=== PATIENT | female | born 1980 | race Caucasian/White ===

== ENCOUNTER 2016-11-30 05:55 | Emergency (ER) | payer BC, OTHER ==
--- NOTE | 2016-11-30 06:12 | EDM.PDOC ---
ED HPI GENERAL MEDICAL PROBLEM <Tom Slater Luis Alberto - Last Filed: 11/30/16 08:42> - General Source of Information: Reports: Patient History Limitations: Reports: No Limitations - History of Present Illness Onset: Today Onset Date: 11/30/16 Onset Time: 05:30 Duration: Minutes: Location: Reports: Head, Neck Quality: Reports: Ache Severity: Moderate Improves with: Reports: None Worsens with: Reports: Movement Context: Reports: Other (syncopal event while standing talking to a coworker in the workplace.) Associated Symptoms: Reports: Chest Pain, Diaphoresis (prior to onset of syncopal event), Headaches (headache at this time), Weakness. Denies: Confusion , Cough, cough w sputum, Fever/Chills, Loss of Appetite, Malaise, Nausea/ Vomiting, Rash, Seizure, Shortness of Breath, Syncope Treatments OPEN CUT EXAMINER: Reports: Other (see below) (none.) Neck Pain Score (Numeric/FACES): 8 <Wayne Joshi - Last Filed: 12/03/16 08:36> - General Chief Complaint: Syncope Stated Complaint: fall fast heart beat fainted Time Seen by Provider: 11/30/16 06:10 - History of Present Illness INITIAL COMMENTS - FREE TEXT/NARRATIVE: 36-year-old female presents to the ED after suffering a syncopal event while at work this morning. Patient works 12 hour shifts at [employer]. She states she was tiny with a coworker and she started to feel her heart racing.she was also aware of some central chest pressure with a racing heart. She was then started to feel dizzy lightheaded and before she could react to this ie. sit down ,she collapsed to the floor. She fell backward striking her head on the concrete floor. She reports she was probably out for about 20 seconds. She was dazed and very dizzy when she sat up. She has never experienced this before. Although she' s had racing heart with anxiety attacks in the past she does not feel she was anxious at this time. Now has a headache with no reported nausea or vomiting. Neck supple skull and base of her neck and throughout the cervical spine. No pain anywhere else at this time.No recent illness. No fever no chills. She states that she did get lunch break and did eat. She's not been ill with nausea vomiting or diarrhea her volume depletion in the last several days. No signs are stable upon arrival with a heart rate of 67/m and BP 157/93. (Wayne Joshi) - Related Data Allergies Allergy/AdvReac Type Severity Reaction Status Date / Time No Known Allergies Allergy Verified 11/30/16 06:09 Home Meds: Home Meds ALPRAZolam [Alprazolam] 1 mg PO Q6H PRN 03/01/14 [History] Sertraline HCl [Sertraline HCl] 100 mg PO DAILY 03/01/14 [History] sitaGLIPtin Phos/Metformin HCl [Janumet 50-500 MG] 2 tab PO DAILY 11/30/16 [ History] Social & Family History - Tobacco Use Smoking Status *Q: Never Smoker - Alcohol Use Days Per Week of Alcohol Use: 0 - Recreational Drug Use Recreational Drug Use: No - Living Situation & Occupation Living situation: Reports: Occupation: Employed <Wayne Joshi - Last Filed: 12/03/16 08:36> ED ROS GENERAL - Review of Systems Review Of Systems: See Below Constitutional: Reports: Weakness, Fatigue. Denies: Fever, Chills, Malaise, Decreased Appetite, Weight Loss HEENT: Reports: No Symptoms Respiratory: Reports: No Symptoms Cardiovascular: Reports: No Symptoms Endocrine: Reports: Fatigue GI/Abdominal: Reports: No Symptoms : Reports: No Symptoms Musculoskeletal: Reports: Neck Pain. Denies: Shoulder Pain (see history of present illness), Arm Pain, Back Pain, Hand Pain, Leg Pain, Foot Pain, Joint Pain, Joint Swelling, Muscle Pain, Muscle Stiffness Skin: Reports: No Symptoms Neurological: Reports: Dizziness, Headache, Syncope (see history of present illness), Weakness. Denies: Numbness, Paresthesia, Pre-Existing Deficit, Seizure, Tingling, Tremors, Trouble Speaking, Difficulty Walking, Change in Speech, Gait Disturbance Psychiatric: Reports: Anxiety Hematologic/Lymphatic: Reports: No Symptoms Immunologic: Reports: No Symptoms <Wayne Joshi - Last Filed: 12/03/16 08:36> - Physical Exam Exam: See Below Exam Limited By: No Limitations General Appearance: Alert, WD/WN, No Apparent Distress Eye Exam: Bilateral Eye: Normal Inspection Throat/Mouth: Normal Inspection, Normal Lips, Normal Oropharynx, Other (no evidence of biting of the tongue) Head Exam: Scalp Tenderness (occipital scalp and base of scalp.). No: Facial Abrasions, Facial Ecchymosis, Facial Lacerations, Facial Swelling, Facial Tenderness, Sinus Tenderness Neck: Limited Range of Motion, Tender Lateral, Tender Midline (C4-C5 level.). No: Lymphadenopathy (L), Lymphadenopathy (R) Respiratory/Chest: No Respiratory Distress, Lungs Clear, Normal Breath Sounds, No Accessory Muscle Use Cardiovascular: Normal Peripheral Pulses, Regular Rate, Rhythm, No Edema, No Gallop, No Murmur GI/Abdominal: Normal Bowel Sounds, Soft, Non-Tender, No Organomegaly, No Distention, No Abnormal Bruit, No Mass, Other (abdominal girth limits ability to palpate solid organs.) Neuro Exam (Abbreviated): Alert, Oriented, CN II-XII Intact, Normal Cognition, No Motor/Sensory Deficits. No: Slow to Respond, Unresponsive, Memory Loss Remote Events, Memory Loss Recent Events, Abnormal Gait, Abnormal Reflexes, Sensory/Motor Deficit Back Exam: Normal Inspection, Full Range of Motion. No: CVA Tenderness (L), CVA Tenderness (R), Vertebral Tenderness Extremities: Normal Inspection, Normal Range of Motion, Non-Tender, No Pedal Edema, Normal Capillary Refill, Other (no injuries to the elbows.) Psychiatric: Normal Affect, Normal Mood Skin Exam: Warm, Dry, Intact, Normal Color, No Rash <Wayne Joshi L - Last Filed: 12/03/16 08:36> Course <Tom Slater L - Last Filed: 11/30/16 08:42> <Wayne Joshi - Last Filed: 12/03/16 08:36> - Vital Signs Last Recorded V/S: Last Vital Signs Temp 36.1 C 11/30/16 07:19 Pulse 72 11/30/16 06:02 Resp 12 11/30/16 08:35 BP 147/96 H 11/30/16 06:02 Pulse Ox 98 11/30/16 08:35 Orthostatic Blood Pressure [ 136/88 Standing] Orthostatic Blood Pressure [ 141/80 Sitting] Orthostatic Blood Pressure [ 156/88 Supine] - Orders/Labs/Meds Labs: Laboratory Tests 11/30/16 11/30/16 11/30/16 Range/Units 06:30 06:30 06:30 WBC 11.40 H (3.98-10.04) K/mm3 RBC 4.97 (3.98-5.22) M/mm3 Hgb 13.4 (11.2-15.7) gm/L Hct 40.7 (34.1-44.9) % MCV 81.9 (79.4-94.8) fl MCH 27.0 (25.6-32.2) pg MCHC 32.9 (32.2-35.5) g/dl RDW Std Deviation 39.8 (36.4-46.3) fL Plt Count 300 (182-369) K/mm3 MPV 8.8 L (9.4-12.3) fl Neutrophils % (Manual) 75 H (40-60) % Band Neutrophils % 0 (0-10) % Lymphocytes % (Manual) 24 (20-40) % Atypical Lymphs % 0 % Monocytes % (Manual) 0 L (2-10) % Eosinophils % (Manual) 1 (0.7-5.8) % Basophils % (Manual) 0 L (0.1-1.2) Platelet Estimate Adequate RBC Morph Comment Normal D-Dimer, Quantitative < 0.19 L (0.19-0.59) mg/L Sodium 139 (136-145) mEq/L Potassium 3.8 (3.5-5.1) mEq/L Chloride 103 (98-107) mEq/L Carbon Dioxide 26 (21-32) mEq/L Anion Gap 13.8 (5-15) BUN 12 (7-18) mg/dL Creatinine 0.6 (0.55-1.02) mg/dL Est Cr Clr Drug Dosing 116.64 mL/min Estimated GFR (MDRD) > 60 (>60) mL/min BUN/Creatinine Ratio 20.0 H (14-18) Glucose 145 H (74-106) mg/dL Calcium 9.1 (8.5-10.1) mg/dL Total Bilirubin 0.2 (0.2-1.0) mg/dL AST 9 L (15-37) U/L ALT 24 (14-59) U/L Alkaline Phosphatase 68 (46-116) U/L CK-MB (CK-2) 0.5 (0-3.6) ng/ml Troponin I < 0.017 (0.00-0.056) ng/mL C-Reactive Protein 0.8 (<1.0) mg/dL Total Protein 7.8 (6.4-8.2) g/dl Albumin 3.7 (3.4-5.0) g/dl Globulin 4.1 gm/dL Albumin/Globulin Ratio 0.9 L (1-2) TSH 3rd Generation 4.143 H (0.358-3.74) uIU/mL Urine Color (Yellow) Urine Appearance (Clear) Urine pH (5.0-8.0) Ur Specific [place] (1.005-1.030) Urine Protein (Negative) Urine Glucose (UA) (Negative) Urine Ketones (Negative) Urine Occult Blood (Negative) Urine Nitrite (Negative) Urine Bilirubin (Negative) Urine Urobilinogen (0.2-1.0) Ur Leukocyte Esterase (Negative) Urine RBC (0-5) /hpf Urine WBC (0-5) /hpf Ur Epithelial Cells (0-5) /hpf Urine Bacteria (FEW) /hpf Urine Mucus (FEW) /hpf Urine HCG, Qual (NEGATIVE) 11/30/16 11/30/16 Range/Units 06:30 06:30 WBC (3.98-10.04) K/mm3 RBC (3.98-5.22) M/mm3 Hgb (11.2-15.7) gm/L Hct (34.1-44.9) % MCV (79.4-94.8) fl MCH (25.6-32.2) pg MCHC (32.2-35.5) g/dl RDW Std Deviation (36.4-46.3) fL Plt Count (182-369) K/mm3 MPV (9.4-12.3) fl Neutrophils % (Manual) (40-60) % Band Neutrophils % (0-10) % Lymphocytes % (Manual) (20-40) % Atypical Lymphs % % Monocytes % (Manual) (2-10) % Eosinophils % (Manual) (0.7-5.8) % Basophils % (Manual) (0.1-1.2) Platelet Estimate RBC Morph Comment D-Dimer, Quantitative (0.19-0.59) mg/L Sodium (136-145) mEq/L Potassium (3.5-5.1) mEq/L Chloride (98-107) mEq/L Carbon Dioxide (21-32) mEq/L Anion Gap (5-15) BUN (7-18) mg/dL Creatinine (0.55-1.02) mg/dL Est Cr Clr Drug Dosing mL/min Estimated GFR (MDRD) (>60) mL/min BUN/Creatinine Ratio (14-18) Glucose (74-106) mg/dL Calcium (8.5-10.1) mg/dL Total Bilirubin (0.2-1.0) mg/dL AST (15-37) U/L ALT (14-59) U/L Alkaline Phosphatase (46-116) U/L CK-MB (CK-2) (0-3.6) ng/ml Troponin I (0.00-0.056) ng/mL C-Reactive Protein (<1.0) mg/dL Total Protein (6.4-8.2) g/dl Albumin (3.4-5.0) g/dl Globulin gm/dL Albumin/Globulin Ratio (1-2) TSH 3rd Generation (0.358-3.74) uIU/mL Urine Color Yellow (Yellow) Urine Appearance Clear (Clear) Urine pH 6.0 (5.0-8.0) Ur Specific [place] 1.020 (1.005-1.030) Urine Protein Negative (Negative) Urine Glucose (UA) Negative (Negative) Urine Ketones Negative (Negative) Urine Occult Blood Negative (Negative) Urine Nitrite Negative (Negative) Urine Bilirubin Negative (Negative) Urine Urobilinogen 0.2 (0.2-1.0) Ur Leukocyte Esterase Negative (Negative) Urine RBC 0-5 (0-5) /hpf Urine WBC 0-5 (0-5) /hpf Ur Epithelial Cells 0-5 (0-5) /hpf Urine Bacteria Not seen (FEW) /hpf Urine Mucus Not seen (FEW) /hpf Urine HCG, Qual Negative (NEGATIVE) Meds: Medications Discontinued Medications Generic Name Dose Route Start Last Admin Trade Name Freq PRN Reason Stop Dose Admin Acetaminophen 975 mg 11/30/16 06:56 11/30/16 07:19 Tylenol PO 11/30/16 06:57 975 mg NOW ONE Administration Sodium Chloride 1,000 mls @ 150 mls/hr 11/30/16 06:45 11/30/16 07:18 Normal Saline IV 150 mls/hr ASDIRECTED GALILEA Administration Sodium Chloride 500 mls @ 999 mls/hr 11/30/16 07:48 Normal Saline IV 11/30/16 08:18 .BOLUS ONE Ketorolac Tromethamine 30 mg 11/30/16 08:00 11/30/16 07:55 Toradol IVPUSH 30 mg ONETIME GALILEA Administration Ondansetron HCl 4 mg 11/30/16 06:55 11/30/16 07:17 Zofran IVPUSH 11/30/16 06:56 4 mg ONETIME ONE Administration - Radiology Interpretation Free Text/Narrative:: 36-year-old female reports to the ED after suffering a syncopal event while in the workplace. She reports that she was talking to a coworker and she began to fill her heart racing and developing treatment of central chest pressure discomfort. She guarded started to feel dizzy lightheaded but before she could react to this she collapsed to the floor. Unfortunately she struck the back of her head and neck is painful since she passed out. She landed on a concrete floor. She doesn't think she struck any objects. She states she was out for only a short duration of time less than 20 seconds. Took a while to get her bearings and but she was dizzy and lightheaded when she sat up on the floor for the next 15-20 minutes before she felt good enough to get up. Has a headache at this time no nausea vomiting. Tissue is feeling well otherwise during her shift at work. She did eat lunch and should not be hypoglycemic. She's been eating and drinking normally. She denies suffering any abdominal pains or other reasons to have a orthostatic event secondary to increased vagal tone. No new medications. She takes sertraline before going to bed. She takes alprazolam on a when necessary basis for anxiety panic attacks.examination reveals her to be quite tender occipital scalp and base of the skull. Also throughout the cervical spine in the midline. CT head and neck will therefore be done. No injuries to her thoracic or lumbar spine identified. No injuries to the elbows or the posterior shoulders or ribs from fall. No injuries to the lower extremities appreciated on exam. Etiology of her syncopal event is unclear unless she was experiencing a tachyarrhythmia. ECG to be done. She will remain on a rn cardiac while she's in the ED. Vital signs are stable at this time with mild hypertension evident. O2 sats 95% on room air. Routine labs to be done including a d-dimer and a TSH.she was offered analgesia at this time but she declined. (Wayne Joshi) - Re-Assessments/Exams Free Text/Narrative Re-Assessment/Exam: 11/30/16 06:57reports the nursing staff now that she is more nauseated and headache is worsening. Will therefore give her Zofran 4 mg IV and Tylenol 975 mg by mouth. Care will be transferred to Dr. Slater as it is change of shift. Follow-up on CT had neck and laboratory workup. (Wayne Joshi) Free Text/Narrative Re-Assessment/Exam: 11/30/16 07:36. have assumed care for Dr. Joshi after change of shift. I agree with his clinical history and exam as documented. Labs are back, chemistries look good. Troponin, d-dimer are both negative. CT reports are back of head and neck with no acute abnormality. 11/30/16 07:45. Still has some Ruiz and moderate neck soreness. Will give torodol 30 IV. Will plan for holter moniter. Vitals stable. sinus rythm no ectopy. 11/30/16 08:33. That{img} is not letting me type in additional instructions, will hand write. (Tom Slater) Departure - Departure Time of Disposition: 08:30 Condition: Fair <Tom Slater - Last Filed: 11/30/16 08:42> <Wayne Joshi - Last Filed: 12/03/16 08:36> - Departure Disposition: Home, Self-Care 01 Clinical Impression: Syncope - Discharge Information Instructions: Syncope, [id number] Referrals: Kaila Felix NP [Primary Care Provider] - Forms: ED Department Discharge, ED Return to Work/School Form Additional Instructions: ED HPI GENERAL MEDICAL PROBLEM - General Source of Information: Reports: Patient History Limitations: Reports: No Limitations - History of Present Illness Onset: Today Onset Date: 11/30/16 Onset Time: 05:30 Duration: Minutes: Location: Reports: Head, Neck Quality: Reports: Ache Severity: Moderate Improves with: Reports: None Worsens with: Reports: Movement Context: Reports: Other (syncopal event while standing talking to a coworker in the workplace.) Associated Symptoms: Reports: Chest Pain, Diaphoresis (prior to onset of syncopal event), Headaches (headache at this time), Weakness. Denies: Confusion , Cough, cough w sputum, Fever/Chills, Loss of Appetite, Malaise, Nausea/ Vomiting, Rash, Seizure, Shortness of Breath, Syncope Treatments OPEN CUT EXAMINER: Reports: Other (see below) (none.) Neck Pain Score (Numeric/FACES): 8 <Wayne Joshi - Last Filed: 11/30/16 06:57> <Tom Slater - Last Filed: 11/30/16 08:28> - General Chief Complaint: Syncope Stated Complaint: fall fast heart beat fainted Time Seen by Provider: 11/30/16 06:10 - History of Present Illness INITIAL COMMENTS - FREE TEXT/NARRATIVE: 36-year-old female presents to the ED after suffering a syncopal event while at work this morning. Patient works 12 hour shifts at [employer]. She states she was tiny with a coworker and she started to feel her heart racing.she was also aware of some central chest pressure with a racing heart. She was then started to feel dizzy lightheaded and before she could react to this ie. sit down ,she collapsed to the floor. She fell backward striking her head on the concrete floor. She reports she was probably out for about 20 seconds. She was dazed and very dizzy when she sat up. She has never experienced this before. Although she' s had racing heart with anxiety attacks in the past she does not feel she was anxious at this time. Now has a headache with no reported nausea or vomiting. Neck supple skull and base of her neck and throughout the cervical spine. No pain anywhere else at this time.No recent illness. No fever no chills. She states that she did get lunch break and did eat. She's not been ill with nausea vomiting or diarrhea her volume depletion in the last several days. No signs are stable upon arrival with a heart rate of 67/m and BP 157/93. (Wayne Joshi) - Related Data Allergies Allergy/AdvReac Type Severity Reaction Status Date / Time No Known Allergies Allergy Verified 11/30/16 06:09 Home Meds: Home Meds ALPRAZolam [Alprazolam] 1 mg PO Q6H PRN 03/01/14 [History] Sertraline HCl [Sertraline HCl] 100 mg PO DAILY 03/01/14 [History] sitaGLIPtin Phos/Metformin HCl [Janumet 50-500 MG] 2 tab PO DAILY 11/30/16 [ History] Social & Family History - Tobacco Use Smoking Status *Q: Never Smoker - Alcohol Use Days Per Week of Alcohol Use: 0 - Recreational Drug Use Recreational Drug Use: No - Living Situation & Occupation Living situation: Reports: Occupation: Employed <MadelynWayne Luis Alberto - Last Filed: 11/30/16 06:57> ED ROS GENERAL - Review of Systems Review Of Systems: See Below Constitutional: Reports: Weakness, Fatigue. Denies: Fever, Chills, Malaise, Decreased Appetite, Weight Loss HEENT: Reports: No Symptoms Respiratory: Reports: No Symptoms Cardiovascular: Reports: No Symptoms Endocrine: Reports: Fatigue GI/Abdominal: Reports: No Symptoms : Reports: No Symptoms Musculoskeletal: Reports: Neck Pain. Denies: Shoulder Pain (see history of present illness), Arm Pain, Back Pain, Hand Pain, Leg Pain, Foot Pain, Joint Pain, Joint Swelling, Muscle Pain, Muscle Stiffness Skin: Reports: No Symptoms Neurological: Reports: Dizziness, Headache, Syncope (see history of present illness), Weakness. Denies: Numbness, Paresthesia, Pre-Existing Deficit, Seizure, Tingling, Tremors, Trouble Speaking, Difficulty Walking, Change in Speech, Gait Disturbance Psychiatric: Reports: Anxiety Hematologic/Lymphatic: Reports: No Symptoms Immunologic: Reports: No Symptoms <Wayne Joshi - Last Filed: 11/30/16 06:57> - Physical Exam Exam: See Below Exam Limited By: No Limitations General Appearance: Alert, WD/WN, No Apparent Distress Eye Exam: Bilateral Eye: Normal Inspection Throat/Mouth: Normal Inspection, Normal Lips, Normal Oropharynx, Other (no evidence of biting of the tongue) Head Exam: Scalp Tenderness (occipital scalp and base of scalp.). No: Facial Abrasions, Facial Ecchymosis, Facial Lacerations, Facial Swelling, Facial Tenderness, Sinus Tenderness Neck: Limited Range of Motion, Tender Lateral, Tender Midline (C4-C5 level.). No: Lymphadenopathy (L), Lymphadenopathy (R) Respiratory/Chest: No Respiratory Distress, Lungs Clear, Normal Breath Sounds, No Accessory Muscle Use Cardiovascular: Normal Peripheral Pulses, Regular Rate, Rhythm, No Edema, No Gallop, No Murmur GI/Abdominal: Normal Bowel Sounds, Soft, Non-Tender, No Organomegaly, No Distention, No Abnormal Bruit, No Mass, Other (abdominal girth limits ability to palpate solid organs.) Neuro Exam (Abbreviated): Alert, Oriented, CN II-XII Intact, Normal Cognition, No Motor/Sensory Deficits. No: Slow to Respond, Unresponsive, Memory Loss Remote Events, Memory Loss Recent Events, Abnormal Gait, Abnormal Reflexes, Sensory/Motor Deficit Back Exam: Normal Inspection, Full Range of Motion. No: CVA Tenderness (L), CVA Tenderness (R), Vertebral Tenderness Extremities: Normal Inspection, Normal Range of Motion, Non-Tender, No Pedal Edema, Normal Capillary Refill, Other (no injuries to the elbows.) Psychiatric: Normal Affect, Normal Mood Skin Exam: Warm, Dry, Intact, Normal Color, No Rash <Wayne Joshi - Last Filed: 11/30/16 06:57> Course <Wayne Joshi - Last Filed: 11/30/16 06:57> <Tom Slater - Last Filed: 11/30/16 08:28> - Vital Signs Last Recorded V/S: Last Vital Signs Temp 96.9 F 11/30/16 07:19 Pulse 72 11/30/16 06:02 Resp 16 11/30/16 06:02 BP 147/96 H 11/30/16 06:02 Pulse Ox 95 11/30/16 06:02 Orthostatic Blood Pressure [ 159/89 Sitting] Orthostatic Blood Pressure [ 156/88 Supine] - Orders/Labs/Meds Orders: Active Orders 24 hr Category Date Time Status EKG Documentation Completion [RC] STAT Care 11/30/16 06:32 Active Holter Monitor 48 Hours [RC] .PRN Care 11/30/16 07:50 Ordered Orthostatic Vital Signs [RC] ASDIRECTED Care 11/30/16 06:11 Active Cervical Spine wo Cont [CT] Stat Exams 11/30/16 06:33 Taken Chest 1V Frontal [CR] Stat Exams 11/30/16 06:32 Taken Head wo Cont [CT] Stat Exams 11/30/16 06:34 Taken Ketorolac [Toradol] Med 11/30/16 08:00 Ordered 30 mg IVPUSH ONETIME Sodium Chloride 0.9% [Normal Saline] 1,000 ml Med 11/30/16 06:45 Active IV ASDIRECTED Sodium Chloride 0.9% [Normal Saline] 500 ml Med 11/30/16 07:48 Ordered IV .BOLUS Medication Orders Sodium Chloride (Normal Saline) 1,000 mls @ 150 mls/hr IV ASDIRECTED GALILEA Last Admin: 11/30/16 07:18 Dose: 150 mls/hr Sodium Chloride (Normal Saline) 500 mls @ 999 mls/hr IV .BOLUS ONE Stop: 11/30/16 08:18 Ketorolac Tromethamine (Toradol) 30 mg IVPUSH ONETIME GALILEA Last Admin: 11/30/16 07:55 Dose: 30 mg Labs: Laboratory Tests 11/30/16 11/30/16 11/30/16 Range/Units 06:30 06:30 06:30 WBC 11.40 H (3.98-10.04) K/mm3 RBC 4.97 (3.98-5.22) M/mm3 Hgb 13.4 (11.2-15.7) gm/L Hct 40.7 (34.1-44.9) % MCV 81.9 (79.4-94.8) fl MCH 27.0 (25.6-32.2) pg MCHC 32.9 (32.2-35.5) g/dl RDW Std Deviation 39.8 (36.4-46.3) fL Plt Count 300 (182-369) K/mm3 MPV 8.8 L (9.4-12.3) fl Neutrophils % (Manual) 75 H (40-60) % Band Neutrophils % 0 (0-10) % Lymphocytes % (Manual) 24 (20-40) % Atypical Lymphs % 0 % Monocytes % (Manual) 0 L (2-10) % Eosinophils % (Manual) 1 (0.7-5.8) % Basophils % (Manual) 0 L (0.1-1.2) Platelet Estimate Adequate RBC Morph Comment Normal D-Dimer, Quantitative < 0.19 L (0.19-0.59) mg/L Sodium 139 (136-145) mEq/L Potassium 3.8 (3.5-5.1) mEq/L Chloride 103 (98-107) mEq/L Carbon Dioxide 26 (21-32) mEq/L Anion Gap 13.8 (5-15) BUN 12 (7-18) mg/dL Creatinine 0.6 (0.55-1.02) mg/dL Est Cr Clr Drug Dosing 116.64 mL/min Estimated GFR (MDRD) > 60 (>60) mL/min BUN/Creatinine Ratio 20.0 H (14-18) Glucose 145 H (74-106) mg/dL Calcium 9.1 (8.5-10.1) mg/dL Total Bilirubin 0.2 (0.2-1.0) mg/dL AST 9 L (15-37) U/L ALT 24 (14-59) U/L Alkaline Phosphatase 68 (46-116) U/L CK-MB (CK-2) 0.5 (0-3.6) ng/ml Troponin I < 0.017 (0.00-0.056) ng/mL C-Reactive Protein 0.8 (<1.0) mg/dL Total Protein 7.8 (6.4-8.2) g/dl Albumin 3.7 (3.4-5.0) g/dl Globulin 4.1 gm/dL Albumin/Globulin Ratio 0.9 L (1-2) TSH 3rd Generation 4.143 H (0.358-3.74) uIU/mL Urine Color (Yellow) Urine Appearance (Clear) Urine pH (5.0-8.0) Ur Specific [place] (1.005-1.030) Urine Protein (Negative) Urine Glucose (UA) (Negative) Urine Ketones (Negative) Urine Occult Blood (Negative) Urine Nitrite (Negative) Urine Bilirubin (Negative) Urine Urobilinogen (0.2-1.0) Ur Leukocyte Esterase (Negative) Urine RBC (0-5) /hpf Urine WBC (0-5) /hpf Ur Epithelial Cells (0-5) /hpf Urine Bacteria (FEW) /hpf Urine Mucus (FEW) /hpf Urine HCG, Qual (NEGATIVE) 11/30/16 11/30/16 Range/Units 06:30 06:30 WBC (3.98-10.04) K/mm3 RBC (3.98-5.22) M/mm3 Hgb (11.2-15.7) gm/L Hct (34.1-44.9) % MCV (79.4-94.8) fl MCH (25.6-32.2) pg MCHC (32.2-35.5) g/dl RDW Std Deviation (36.4-46.3) fL Plt Count (182-369) K/mm3 MPV (9.4-12.3) fl Neutrophils % (Manual) (40-60) % Band Neutrophils % (0-10) % Lymphocytes % (Manual) (20-40) % Atypical Lymphs % % Monocytes % (Manual) (2-10) % Eosinophils % (Manual) (0.7-5.8) % Basophils % (Manual) (0.1-1.2) Platelet Estimate RBC Morph Comment D-Dimer, Quantitative (0.19-0.59) mg/L Sodium (136-145) mEq/L Potassium (3.5-5.1) mEq/L Chloride (98-107) mEq/L Carbon Dioxide (21-32) mEq/L Anion Gap (5-15) BUN (7-18) mg/dL Creatinine (0.55-1.02) mg/dL Est Cr Clr Drug Dosing mL/min Estimated GFR (MDRD) (>60) mL/min BUN/Creatinine Ratio (14-18) Glucose (74-106) mg/dL Calcium (8.5-10.1) mg/dL Total Bilirubin (0.2-1.0) mg/dL AST (15-37) U/L ALT (14-59) U/L Alkaline Phosphatase (46-116) U/L CK-MB (CK-2) (0-3.6) ng/ml Troponin I (0.00-0.056) ng/mL C-Reactive Protein (<1.0) mg/dL Total Protein (6.4-8.2) g/dl Albumin (3.4-5.0) g/dl Globulin gm/dL Albumin/Globulin Ratio (1-2) TSH 3rd Generation (0.358-3.74) uIU/mL Urine Color Yellow (Yellow) Urine Appearance Clear (Clear) Urine pH 6.0 (5.0-8.0) Ur Specific [place] 1.020 (1.005-1.030) Urine Protein Negative (Negative) Urine Glucose (UA) Negative (Negative) Urine Ketones Negative (Negative) Urine Occult Blood Negative (Negative) Urine Nitrite Negative (Negative) Urine Bilirubin Negative (Negative) Urine Urobilinogen 0.2 (0.2-1.0) Ur Leukocyte Esterase Negative (Negative) Urine RBC 0-5 (0-5) /hpf Urine WBC 0-5 (0-5) /hpf Ur Epithelial Cells 0-5 (0-5) /hpf Urine Bacteria Not seen (FEW) /hpf Urine Mucus Not seen (FEW) /hpf Urine HCG, Qual Negative (NEGATIVE) Meds: Medications Generic Name Dose Route Start Last Admin Trade Name Freq PRN Reason Stop Dose Admin Sodium Chloride 1,000 mls @ 150 mls/hr 11/30/16 06:45 11/30/16 07:18 Normal Saline IV 150 mls/hr ASDIRECTED GALILEA Administration Sodium Chloride 500 mls @ 999 mls/hr 11/30/16 07:48 Normal Saline IV 11/30/16 08:18 .BOLUS ONE Ketorolac Tromethamine 30 mg 11/30/16 08:00 11/30/16 07:55 Toradol IVPUSH 30 mg ONETIME GALILEA Administration Discontinued Medications Generic Name Dose Route Start Last Admin Trade Name Freq PRN Reason Stop Dose Admin Acetaminophen 975 mg 11/30/16 06:56 11/30/16 07:19 Tylenol PO 11/30/16 06:57 975 mg NOW ONE Administration Ondansetron HCl 4 mg 11/30/16 06:55 11/30/16 07:17 Zofran IVPUSH 11/30/16 06:56 4 mg ONETIME ONE Administration - Radiology Interpretation Free Text/Narrative:: 36-year-old female reports to the ED after suffering a syncopal event while in the workplace. She reports that she was talking to a coworker and she began to fill her heart racing and developing treatment of central chest pressure discomfort. She guarded started to feel dizzy lightheaded but before she could react to this she collapsed to the floor. Unfortunately she struck the back of her head and neck is painful since she passed out. She landed on a concrete floor. She doesn't think she struck any objects. She states she was out for only a short duration of time less than 20 seconds. Took a while to get her bearings and but she was dizzy and lightheaded when she sat up on the floor for the next 15-20 minutes before she felt good enough to get up. Has a headache at this time no nausea vomiting. Tissue is feeling well otherwise during her shift at work. She did eat lunch and should not be hypoglycemic. She's been eating and drinking normally. She denies suffering any abdominal pains or other reasons to have a orthostatic event secondary to increased vagal tone. No new medications. She takes sertraline before going to bed. She takes alprazolam on a when necessary basis for anxiety panic attacks.examination reveals her to be quite tender occipital scalp and base of the skull. Also throughout the cervical spine in the midline. CT head and neck will therefore be done. No injuries to her thoracic or lumbar spine identified. No injuries to the elbows or the posterior shoulders or ribs from fall. No injuries to the lower extremities appreciated on exam. Etiology of her syncopal event is unclear unless she was experiencing a tachyarrhythmia. ECG to be done. She will remain on a rn cardiac while she's in the ED. Vital signs are stable at this time with mild hypertension evident. O2 sats 95% on room air. Routine labs to be done including a d-dimer and a TSH.she was offered analgesia at this time but she declined. (Wayne Joshi) - Re-Assessments/Exams Free Text/Narrative Re-Assessment/Exam: 11/30/16 06:57reports the nursing staff now that she is more nauseated and headache is worsening. Will therefore give her Zofran 4 mg IV and Tylenol 975 mg by mouth. Care will be transferred to Dr. Slater as it is change of shift. Follow-up on CT had neck and laboratory workup. (Wayne Joshi) Free Text/Narrative Re-Assessment/Exam: 11/30/16 07:36. have assumed care for Dr. Joshi after change of shift. I agree with his clinical history and exam as documented. Labs are back, chemistries look good. Troponin, d-dimer are both negative. CT reports are back of head and neck with no acute abnormality. 11/30/16 07:45. Still has some Ruiz and moderate neck soreness. Will give torodol 30 IV. Will plan for holter moniter. Vitals stable. sinus rythm no ectopy. (Tom Slater) Departure <MadelynWayne goddard - Last Filed: 11/30/16 06:57> - Departure Time of Disposition: 08:30 Condition: Fair <Tom Slater - Last Filed: 11/30/16 08:28> - Departure Disposition: Home, Self-Care 01 Clinical Impression: Syncope - Discharge Information Referrals: Kaila Felix NP [Primary Care Provider] - Forms: ED Department Discharge, ED Return to Work/School Form - My Orders Last 24 Hours: My Active Orders 11/30/16 07:48 Sodium Chloride 0.9% [Normal Saline] 500 ml IV .BOLUS 11/30/16 07:50 Holter Monitor 48 Hours [RC] .PRN 11/30/16 08:00 Ketorolac [Toradol] 30 mg IVPUSH ONETIME - Assessment/Plan Last 24 Hours: My Active Orders 11/30/16 07:48 Sodium Chloride 0.9% [Normal Saline] 500 ml IV .BOLUS 11/30/16 07:50 Holter Monitor 48 Hours [RC] .PRN 11/30/16 08:00 Ketorolac [Toradol] 30 mg IVPUSH ONETIME rest, clear li
[2016-11-30 06:19] VITALS: BP 147/96
[2016-11-30] MEDS ORDERED: Sodium Chloride 0.9% 1,000 ML IV SCH (06:45)
[2016-11-30] MEDS ORDERED: Ondansetron 4 MG/2 ML SDV IVPUSH ONE (06:55)
[2016-11-30] MEDS ORDERED: Acetaminophen 325 MG Tab PO ONE (06:56)
[2016-11-30] MEDS ORDERED: Sodium Chloride 0.9% 500 ML IV ONE (07:48)
[2016-11-30] MEDS ORDERED: Ketorolac 30 MG/ML SDV IVPUSH SCH (08:00)
--- NOTE | 2016-12-01 18:06 | CT ---
CT cervical spine Technique: Multiple axial sections were obtained from above C1 inferiorly to the mid T1 level. Reconstructed sagittal and coronal images were reviewed. Comparison: No prior cervical spine imaging. Findings: Mastoid sinuses that are seen appear clear. Middle ear cavities are clear. Posterior skull base is intact. Vertebral body heights and disc spaces are preserved. Vertebral bodies and posterior arches are intact with no fracture being seen. No bony central or bony neural foraminal stenosis is seen. No abnormal subluxation is seen. Impression: 1. No abnormality is identified on CT study of the cervical spine. Diagnostic code #1 I agree with preliminary report issued by [facility] ([facility] report finalized on 11/30/16, 8:17 AM Central Time)
--- NOTE | 2016-12-01 18:06 | CT ---
Head CT Technique: Multiple axial sections through the brain were obtained. Intravenous contrast was not utilized. Comparison: Previous head CT study of 05/04/13. Findings: Ventricles along with basal cisterns and sulci over the convexities appear within normal limits for the patient's age. No abnormal parenchymal densities are seen. No evidence of intracranial hemorrhage. No midline shift or mass effect is seen. Bone window settings were reviewed which show the visualized sinuses to appear clear. No acute calvarial abnormality is seen. Impression: 1. Nothing acute is identified on noncontrast head CT exam. No significant change is seen from prior head CT exam. Diagnostic code #1 I agree with preliminary report issued by [facility] ([facility] report finalized on 11/30/16, 8:16 AM Central Time)
--- NOTE | 2016-12-01 18:06 | CR ---
Chest: Portable view of the chest was obtained. Comparison: No prior chest x-ray. Heart size and mediastinum are normal. Lungs are clear. Bony structures are grossly intact. Impression: 1. Nothing acute is appreciated on portable chest x-ray. Diagnostic code #1
== END 2016-11-30 08:49 | disposition home or self-care (01) ==
LOC: JD.ED 05:55
DX: R55 Syncope and collapse (principal); Z79.899 Other long term (current) drug therapy
CPT/HCPCS: 36415; 70450; 71010; 72125; 80053; 81001; 81025; 82553; 84443; 84484; 85025; 85379; 86140; 93005; 93225; 93226; 96361; 96374; 96375; 99285; A9270; J1885; J2405; J7040

== ENCOUNTER 2018-06-18 06:59 | Day surgery (SDC) | payer BC, OTHER ==
[~2018-06-18 06:59] MED LIST: Lactated Ringers 1,000 ML IV SCH; Lidocaine 1%/Sod Bicarbonate in NS 8.4% 1 ML Syringe IDERM PRN; Sodium Chloride 0.9% 10 ML Syringe FLUSH PRN
[2018-06-18] MEDS ORDERED: Lidocaine 1% 4 ML ONE (07:10)
[2018-06-18] MEDS ORDERED: Midazolam 1 MG/ML 2 ML SDV ONE (07:11)
[2018-06-18] MEDS ORDERED: Propofol 200 MG/20 ML SDV ONE (07:11)
[2018-06-18] MEDS ORDERED: fentaNYL 100 MCG/2 ML SDV ONE (07:11)
[2018-06-18] MEDS ORDERED: Lactated Ringers 0 ML ONE (07:26)
--- NOTE | 2018-06-18 07:42 | PCM.PREANE ---
Preanesthetic Assessment - Anesthesia/Transfusion/Family Hx Anesthesia History: Prior Anesthesia Without Reaction Family History of Anesthesia Reaction: No Transfusion History: No Prior Transfusion(s) Intubation History: Unknown - Review of Systems General: No Symptoms Pulmonary: No Symptoms (Bronchitis in March with symptoms all resolved. ETOH: rarely) Cardiovascular: No Symptoms, Palpitations, Dyspnea on Exertion Gastrointestinal: No Symptoms (GERD controlled.) Neurological: No Symptoms (motion sickness on occasion.), Headache (History of migraines) Other: Reports: Diabetes (AM BS @ [id number]), Depression, Anxiety - Physical Assessment NPO Status Date: 06/17/18 NPO Status Time: 23:30 Pulse: 74 O2 Sat by Pulse Oximetry: 97 Respiratory Rate: 16 Blood Pressure: 141/77 Temperature: 37.0 C Height: 1.65 m Weight: 125 kg ASA Class: 2 Mental Status: Alert & Oriented x3 Airway Class: Mallampati = 2 Dentition: Reports: Normal Dentition, Caries Thyro-Mental Finger Breadths: 3 Mouth Opening Finger Breadths: 3 (History of TMJ) ROM/Head Extension: Full Lungs: Clear to Auscultation, Normal Respiratory Effort Cardiovascular: Regular Rate, Regular Rhythm, No Murmurs - Lab Values: Laboratory Last Values Urine HCG, Qual Negative (NEGATIVE) 06/18/18 07:15 All labs reviewed and noted and within acceptable ranges to proceed with scheduled procedure. - Allergies Allergies/Adverse Reactions: Allergies Allergy/AdvReac Type Severity Reaction Status Date / Time levofloxacin [From Levaquin] Allergy Cannot Verified 06/17/18 12:46 Remember trimethoprim Allergy Cannot Verified 06/17/18 12:46 Remember - Anesthesia Plan Pre-Op Medication Ordered: None - Acknowledgements Anesthesia Type Planned: MAC Pt an Appropriate Candidate for the Planned Anesthesia: Yes Alternatives and Risks of Anesthesia Discussed w Pt/Guardian: Yes Pt/Guardian Understands and Agrees with Anesthesia Plan: Yes PreAnesthesia Questionnaire HEENT History: Reports: Other (See Below) Other HEENT History: TMJ, black tongue Cardiovascular History: Reports: High Cholesterol Respiratory History: Reports: None Gastrointestinal History: Reports: None Genitourinary History: Reports: None [employer] D[employer] HELPER History: Reports: None Neurological History: Reports: Migraines Psychiatric History: Reports: None, Anxiety Endocrine/Metabolic History: Reports: Diabetes, Type II Hematologic History: Reports: None Immunologic History: Reports: None Oncologic (Cancer) History: Reports: None Dermatologic History: Reports: None - Past Surgical History Head Surgeries/Procedures: Reports: None HEENT Surgical History: Reports: Adenoidectomy, Oral Surgery, Tonsillectomy Cardiovascular Surgical History: Reports: None Respiratory Surgical History: Reports: None GI Surgical History: Reports: None Female Surgical History: Reports: None Male Surgical History: Reports: None Endocrine Surgical History: Reports: None Neurological Surgical History: Reports: None Musculoskeletal Surgical History: Reports: None Oncologic Surgical History: Reports: None Dermatological Surgical History: Reports: None - SUBSTANCE USE Smoking Status *Q: Never Smoker Recreational Drug Use History: No - HOME MEDS Home Medications: Home Meds ALPRAZolam [Alprazolam] 1 mg PO BID PRN 03/01/14 [History] sitaGLIPtin Phos/Metformin HCl [Janumet 50-500 MG] 2 tab PO DAILY 11/30/16 [ History] Acetaminophen/Caffeine [Excedrin Tension Headache Cplt] 2 tab PO TID PRN [History] Acetaminophen/HYDROcodone [[place] 325-5 MG] 1 tab PO Q6H PRN 06/17/18 [History] Albuterol Sulfate [Albuterol Sulfate Hfa] 2 puff INH Q4H PRN 06/17/18 [History] Cyclobenzaprine [Flexeril] 10 mg PO TID PRN 06/17/18 [History] Empagliflozin [Jardiance] 10 mg PO QAM 06/17/18 [History] Escitalopram [Lexapro] 10 mg PO DAILY 06/17/18 [History] Meloxicam 15 mg PO DAILY 06/17/18 [History] Omeprazole Magnesium [Prilosec Otc] 20 mg PO DAILY 06/17/18 [History] Rosuvastatin Calcium 10 mg PO DAILY 06/17/18 [History] Sucralfate [Carafate] 1 gm PO TID 06/17/18 [History] busPIRone HCl [Buspirone HCl] 15 mg PO BID 06/17/18 [History] traMADol HCl [Tramadol HCl] 50 mg PO Q4H PRN 06/17/18 [History] - CURRENT (IN HOUSE) MEDS Current Meds: Current Medications Lactated Ringer's (Ringers, Lactated) 1,000 mls @ 125 mls/hr IV ASDIRECTED GALILEA Stop: 06/18/18 23:00 Lidocaine/Sodium Bicarbonate (Buffered Lidocaine 1% In Ns 8.4%) 0.25 ml IDERM ONETIME PRN PRN Reason: Prior to IV Start Stop: 06/18/18 23:00 Sodium Chloride (Saline Flush) 10 ml FLUSH ASDIRECTED PRN PRN Reason: Keep Vein Open Stop: 06/18/18 23:00 Discontinued Medications Fentanyl (Sublimaze) Confirm Administered Dose 100 mcg .ROUTE .STK-MED ONE Stop: 06/18/18 07:12 Lactated Ringer's (Ringers, Lactated) 1,000 mls @ 125 mls/hr IV ASDIRECTED GALILEA Stop: 06/11/18 23:00 Lidocaine HCl (Xylocaine-Mpf 1%) Confirm Administered Dose 4 mls @ as directed .ROUTE .STK-MED ONE Stop: 06/18/18 07:11 Lactated Ringer's (Ringers, Lactated) Confirm Administered Dose 1,000 mls @ as directed .ROUTE .STK-MED ONE Stop: 06/18/18 07:27 Lidocaine/Sodium Bicarbonate (Buffered Lidocaine 1% In Ns 8.4%) 0.25 ml IDERM ONETIME PRN PRN Reason: Prior to IV Start Stop: 06/11/18 23:00 Midazolam HCl (Versed 1 Mg/Ml) Confirm Administered Dose 2 mg .ROUTE .STK-MED ONE Stop: 06/18/18 07:12 Propofol (Diprivan 20 Ml) Confirm Administered Dose 400 mg .ROUTE .STK-MED ONE Stop: 06/18/18 07:12 Sodium Chloride (Saline Flush) 10 ml FLUSH ASDIRECTED PRN PRN Reason: Keep Vein Open Stop: 06/11/18 23:00
--- NOTE | 2018-06-18 08:51 | PCM.OPNOTE ---
- General Post-Op/Procedure Note Date of Surgery/Procedure: 06/18/18 Operative Procedure(s): egd with biopsy/colonoscopy Pre Op Diagnosis: epigastric pain/rectal bleeding Post-Op Diagnosis: Same Anesthesia Technique: MAC Primary Surgeon: Jaime Cao EBL in mLs: 0 Complications: None Condition: Good
--- NOTE | 2018-06-18 08:54 | PCM48HPAN ---
Post Anesthesia Note - EVALUATION WITHIN 48HRS OF ANESTHETIC Vital Signs in Normal Range: Yes Patient Participated in Evaluation: Yes Respiratory Function Stable: Yes Airway Patent: Yes Cardiovascular Function Stable: Yes Hydration Status Stable: Yes Pain Control Satisfactory: Yes Nausea and Vomiting Control Satisfactory: Yes Mental Status Recovered: Yes (no complaints) Pulse Rate: 72 SaO2: 94 Resp Rate: 14 Temperature: 98.4 F Blood Pressure: 114/72
[2018-06-18 10:59] VITALS: BP 138/72
--- NOTE | 2018-06-19 07:21 | OR ---
DATE OF OPERATION: 06/18/2018 SURGEON: Jaime Cao MD PREOPERATIVE DIAGNOSIS: Rectal bleeding. POSTOPERATIVE DIAGNOSIS: Rectal bleeding. OPERATION PERFORMED: Colonoscopy to cecum done under IV sedation. FINDINGS: Occasional diverticula in the sigmoid colon. There were no angiodysplasias, neoplasias, large tumor masses, ulcerations, or hemorrhoids. ANESTHESIA: Procedure is done under IV sedation. DESCRIPTION OF PROCEDURE: The patient having been taken to the endoscopy room and having been placed, connected to monitoring equipment, given IV sedation for upper GI endoscopy. IV sedation was continued for colonoscopy. She was placed in left lateral position. Perianal area was inspected, it was normal. Rectal exam showed good sphincter tone. A video Olympus colonoscope was then introduced into the rectum and threaded up without problem to the cecum where the appendicular orifice was noted and the ileum was cannulated for short distance, all were normal. Prep was excellent. [place] Cleansing Score grade A, and the scope was slowly withdrawn showing the cecum, ascending colon, transverse colon, descending colon, sigmoid colon, and rectum. The above noted was found. Recommendation is no repeat colonoscopy. The patient tolerated the procedure and sent to recovery room in a stable condition. ESTIMATED BLOOD LOSS: MMODAL /[id number]
--- NOTE | 2018-06-19 07:21 | OR ---
DATE OF OPERATION: 06/18/2018 SURGEON: Jaime Cao MD PREOPERATIVE DIAGNOSIS: Melena and epigastric pain. POSTOPERATIVE DIAGNOSIS: Melena and epigastric pain. OPERATION PERFORMED: Esophagogastroduodenoscopy with biopsy. FINDINGS: Some spotty erythema that was scattered throughout the antrum. The second portion of the duodenum, duodenal bulb, and pyloric channel were normal. Body, cardia, and fundus of the stomach unremarkable. Hiatus is intact. J-maneuver was done. GE junction was normal located at 38 cm. The rest of the esophagus free of any acute disease. ANESTHESIA: Procedure done under IV sedation. DESCRIPTION OF PROCEDURE: The patient was taken to the endoscopy room, placed in a supine position, and connected to oximeter, automatic blood pressure cuff, traffic monitor specialist, and IV and IV sedation given. The patient was placed in the left lateral position. Bite block was inserted. A video Olympus gastroscope placed in the posterior oropharynx under direct vision and threaded past the cricopharyngeus, down the esophagus, into the stomach. The stomach was insufflated, and the scope passed through the pylorus to the second portion of the duodenum and slowly withdrawn showing the normal second portion of the duodenum, duodenal bulb, and pyloric channel. Antrum showed scattered areas of erythema. This was biopsied. No active ulcerations were seen. Body, cardia, and fundus of the stomach were unremarkable. J-maneuver showed an intact hiatus. The scope withdrawn to the GE junction, which was normal, sharp, and located at 38 cm. Rest of the esophagus viewed was normal. The patient tolerated the procedure. Specimen sent to pathology in a labeled container and IV sedation will be continued for colonoscopy. ESTIMATED BLOOD LOSS: MMODAL /[id number]
== END 2018-06-18 10:34 | disposition home or self-care (01) ==
LOC: JD.SDS 06:59
PROVIDERS: ATTEND Surgery
DX: K29.51 Unspecified chronic gastritis with bleeding (principal); K25.4 Chronic or unspecified gastric ulcer with hemorrhage; K57.31 Diverticulosis of large intestine without perforation or abscess with bleeding; K31.89 Other diseases of stomach and duodenum; G43.909 Migraine, unspecified, not intractable, without status migrainosus; E11.9 Type 2 diabetes mellitus without complications; F32.9 Major depressive disorder, single episode, unspecified; F41.1 Generalized anxiety disorder; Z79.84 Long term (current) use of oral hypoglycemic drugs; Z79.899 Other long term (current) drug therapy; Z79.82 Long term (current) use of aspirin; Z88.1 Allergy status to other antibiotic agents; Z88.8 Allergy status to other drugs, medicaments and biological substances; K21.9 Gastro-esophageal reflux disease without esophagitis; E78.00 Pure hypercholesterolemia, unspecified
CPT/HCPCS: 43239; 45378; 81025; 82962; J2001; J2250; J2704; J3010; J7120; 00813

== ENCOUNTER 2020-11-16 12:43 | Emergency (ER) | payer BC ==
[2020-11-16 12:59] VITALS: BP 157/92; PULSE 92
[2020-11-16] MEDS ORDERED: Ondansetron 4 MG/2 ML SDV IVPUSH ONE (13:18)
[2020-11-16] MEDS ORDERED: Sodium Chloride 0.9% 10 ML Syringe FLUSH PRN (13:18)
[2020-11-16] MEDS ORDERED: HYDROmorphone 0.5 MG/0.5 ML Syringe IVPUSH ONE (13:24)
[2020-11-16] MEDS ORDERED: Sodium Chloride 0.9% 1,000 ML IV SCH (13:30)
[2020-11-16] MEDS ORDERED: Pantoprazole 40 MG Tab.CR ONE (13:49)
--- NOTE | 2020-11-16 14:27 | CR ---
Abdomen: Supine and upright views of the abdomen were obtained. Comparison: No prior abdominal imaging is available. Mild increased stool is seen throughout the colon. Bowel gas pattern is otherwise unremarkable. Bony structures appear within normal limits. No abnormal calcifications or discrete soft tissue abnormality is appreciated. No free air is seen. Impression: 1. Slight increased stool within the colon. 2. 2-view abdominal study is otherwise unremarkable. Diagnostic code #2
--- NOTE | 2020-11-16 14:43 | EDM.PDOC ---
ED HPI GENERAL MEDICAL PROBLEM - General Chief Complaint: Gastrointestinal Problem Stated Complaint: ABDOMINAL ISSUES SENT BY [facility] Time Seen by Provider: 11/16/20 13:04 Source of Information: Reports: Patient, RN Notes Reviewed History Limitations: Reports: No Limitations - History of Present Illness INITIAL COMMENTS - FREE TEXT/NARRATIVE: Patient is a 40-year-old female presenting to the emergency department with complaints of a 1 week history of epigastric pain. Reports that beginning last week, she had what she would describe as "stomach flu "which lasted about 2 day s. She felt good for 1 day and thereafter developed fairly intense epigastric pain. Pain has been off and on since then. She reports sensation of bloating. And increased gas. Reports that pain improves with eating but then when her stomach is empty returns. She had an episode of vomiting yesterday and noticed a few flecks of coffee-ground type material. Reports that her stool has been more "rust colored "in nature. Reports a few days ago she did have a single episode of diarrhea which she states was dark in color. Denies any dizziness. Other Treatments MAGNETIZER: denies - Related Data Allergies Allergy/AdvReac Type Severity Reaction Status Date / Time trimethoprim Allergy Severe Cannot Verified 11/16/20 12:56 Remember levofloxacin [From Levaquin] Allergy Cannot Verified 06/17/18 12:46 Remember Home Meds: Home Meds ALPRAZolam [Alprazolam] 1 mg PO BID PRN 03/01/14 [History] sitaGLIPtin Phos/Metformin HCl [Janumet 50-500 MG] 2 tab PO DAILY 11/30/16 [History] Acetaminophen/Caffeine [Excedrin Tension Headache Cplt] 2 tab PO TID PRN 06/17/18 [History] Acetaminophen/HYDROcodone [[place] 325-5 MG] 1 tab PO Q6H PRN 06/17/18 [History] Albuterol Sulfate [Albuterol Sulfate Hfa] 2 puff INH Q4H PRN 06/17/18 [History] Cyclobenzaprine [Flexeril] 10 mg PO TID PRN 06/17/18 [History] Empagliflozin [Jardiance] 10 mg PO QAM 06/17/18 [History] Escitalopram [Lexapro] 10 mg PO DAILY 06/17/18 [History] Meloxicam 15 mg PO DAILY 06/17/18 [History] Omeprazole Magnesium [Prilosec Otc] 20 mg PO DAILY 06/17/18 [History] Rosuvastatin Calcium 10 mg PO DAILY 06/17/18 [History] Sucralfate [Carafate] 1 gm PO TID 06/17/18 [History] busPIRone HCl [Buspirone HCl] 15 mg PO BID 06/17/18 [History] traMADol HCl [Tramadol HCl] 50 mg PO Q4H PRN 06/17/18 [History] Sucralfate [Carafate] 1 gm PO ACBED 10 Days #40 tab 11/16/20 [Rx] Past Medical History HEENT History: Reports: Other (See Below) Other HEENT History: TMJ, black tongue Cardiovascular History: Reports: High Cholesterol Respiratory History: Reports: None Gastrointestinal History: Reports: Diverticulosis Genitourinary History: Reports: None 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: Reports: None Neurological History: Reports: Migraines Psychiatric History: Reports: None, Anxiety Endocrine/Metabolic History: Reports: Diabetes, Type II Hematologic History: Reports: None Immunologic History: Reports: None Oncologic (Cancer) History: Reports: None Dermatologic History: Reports: None - Past Surgical History Head Surgeries/Procedures: Reports: None HEENT Surgical History: Reports: Adenoidectomy, Oral Surgery, Tonsillectomy Cardiovascular Surgical History: Reports: None Respiratory Surgical History: Reports: None GI Surgical History: Reports: None Female Surgical History: Reports: None Endocrine Surgical History: Reports: None Neurological Surgical History: Reports: None Musculoskeletal Surgical History: Reports: Shoulder Surgery Other Musculoskeletal Surgeries/Procedures:: Right shoulder surgical repair 08/2018 Oncologic Surgical History: Reports: None Dermatological Surgical History: Reports: None Social & Family History - Family History Cardiac: Reports: Aneurysm - Caffeine Use Caffeine Use: Reports: Coffee, Energy Drinks, Soda Caffeine Use Comment: 2 caffeine beverages daily - Recreational Drug Use Recreational Drug Use: No - Living Situation & Occupation Living situation: Reports: Occupation: Employed [employer] - Review of Systems Review Of Systems: See Below Constitutional: Reports: Decreased Appetite. Denies: Fever, Chills HEENT: Reports: No Symptoms Respiratory: Reports: No Symptoms Cardiovascular: Reports: No Symptoms Endocrine: Reports: No Symptoms GI/Abdominal: Reports: Abdominal Pain, Decreased Appetite, Flatus, Melena, Nausea, Vomiting : Reports: No Symptoms Musculoskeletal: Reports: No Symptoms Skin: Reports: No Symptoms Neurological: Reports: No Symptoms Psychiatric: Reports: No Symptoms Hematologic/Lymphatic: Reports: No Symptoms Immunologic: Reports: No Symptoms ED EXAM, GI/ABD - Physical Exam Exam: See Below Exam Limited By: No Limitations General Appearance: Alert, WD/WN, No Apparent Distress Respiratory/Chest: No Respiratory Distress, Lungs Clear, Normal Breath Sounds, No Accessory Muscle Use, Chest Non-Tender Cardiovascular: Normal Peripheral Pulses, Regular Rate, Rhythm, No Edema, No Gallop, No JVD, No Murmur, No Rub GI/Abdominal Exam: Normal Bowel Sounds, Soft, No Organomegaly, No Distention, No Abnormal Bruit, No Mass, Pelvis Stable, Tender (Epigastric) Neurological: Alert, Oriented, CN II-XII Intact, Normal Cognition, Normal Gait, Normal Reflexes, No Motor/Sensory Deficits Psychiatric: Normal Affect, Normal Mood Skin Exam: Warm, Dry, Intact, Normal Color, No Rash Course - Vital Signs Last Recorded V/S: Last Vital Signs Temp 98.8 F 11/16/20 12:57 Pulse 92 11/16/20 12:57 Resp 18 11/16/20 12:57 BP 157/92 H 11/16/20 12:57 Pulse Ox 97 11/16/20 12:57 - Orders/Labs/Meds Orders: Active Orders 24 hr Category Date Time Status Fecal Occult Blood Collection [RC] ASDIRECTED Care 11/16/20 13:23 Active Peripheral IV Care [RC] . DIRECTED Care 11/16/20 13:19 Active H PYLORI STOOL ANTIGEN [MREF] Stat Lab 11/16/20 13:40 Received Pantoprazole [ProTONIX] Med 11/17/20 09:00 Active 80 mg PO DAILY Sodium Chloride 0.9% [Normal Saline] 1,000 ml Med 11/16/20 13:30 Active IV ASDIRECTED Sodium Chloride 0.9% [Saline Flush] Med 11/16/20 13:18 Active 10 ml FLUSH ASDIRECTED PRN Peripheral IV Insertion Adult [OM.PC] Stat Oth 11/16/20 13:17 Ordered Medication Orders Sodium Chloride (Normal Saline) 1,000 mls @ 150 mls/hr IV ASDIRECTED [facility] Last Admin: 11/16/20 13:43 Dose: 150 mls/hr Documented by: ALBA Pantoprazole Sodium (Pantoprazole 40 Mg Tab.Cr) 80 mg PO DAILY GALILEA Last Admin: 11/16/20 13:53 Dose: 80 mg Documented by: ALBA Sodium Chloride (Sodium Chloride 0.9% 10 Ml Syringe) 10 ml FLUSH ASDIRECTED PRN PRN Reason: Keep Vein Open Labs: Laboratory Tests 11/16/20 11/16/20 11/16/20 Range/Units 13:41 13:41 13:41 WBC 9.63 (3.98-10.04) K/mm3 RBC 5.14 (3.98-5.22) M/mm3 Hgb 14.0 (11.2-15.7) gm/dl Hct 42.9 (34.1-44.9) % MCV 83.5 (79.4-94.8) fl MCH 27.2 (25.6-32.2) pg MCHC 32.6 (32.2-35.5) g/dl RDW Std Deviation 42.6 (36.4-46.3) fL Plt Count 294 (182-369) K/mm3 MPV 8.6 L (9.4-12.3) fl Neut % (Auto) 56.7 (34.0-71.1) % Lymph % (Auto) 34.6 (19.3-51.7) % Bell % (Auto) 7.2 (4.7-12.5) % Eos % (Auto) 0.9 (0.7-5.8) Baso % (Auto) 0.4 (0.1-1.2) % Neut # (Auto) 5.46 (1.56-6.13) K/mm3 Lymph # (Auto) 3.33 (1.18-3.74) K/mm3 Bell # (Auto) 0.69 H (0.24-0.36) K/mm3 Eos # (Auto) 0.09 (0.04-0.36) K/mm3 Baso # (Auto) 0.04 (0.01-0.08) K/mm3 Sodium 140 (136-145) mEq/L Potassium 4.2 (3.5-5.1) mEq/L Chloride 105 (98-107) mEq/L Carbon Dioxide 26 (21-32) mEq/L Anion Gap 13.2 (5-15) BUN 13 (7-18) mg/dL Creatinine 0.6 (0.55-1.02) mg/dL Est Cr Clr Drug Dosing TNP Estimated GFR (MDRD) > 60 (>60) mL/min BUN/Creatinine Ratio 21.7 H (14-18) Glucose 176 H (70-99) mg/dL Calcium 8.5 (8.5-10.1) mg/dL Total Bilirubin 0.2 (0.2-1.0) mg/dL AST 9 L (15-37) U/L ALT 22 (14-59) U/L Alkaline Phosphatase 67 (46-116) U/L C-Reactive Protein <0.2 (<1.0) mg/dL Total Protein 7.3 (6.4-8.2) g/dl Albumin 3.4 (3.4-5.0) g/dl Globulin 3.9 gm/dL Albumin/Globulin Ratio 0.9 L (1-2) Lipase 145 (73-393) U/L Meds: Medications Generic Name Dose Route Start Last Admin Trade Name Freq PRN Reason Stop Dose Admin Sodium Chloride 1,000 mls @ 150 mls/hr 11/16/20 13:30 11/16/20 13:43 Normal Saline IV 150 mls/hr ASDIRECTED GALILEA Administration Pantoprazole Sodium 80 mg 11/17/20 09:00 11/16/20 13:53 Pantoprazole 40 Mg Tab.Cr PO 80 mg DAILY GALILEA Administration Sodium Chloride 10 ml 11/16/20 13:18 Sodium Chloride 0.9% 10 Ml Syringe FLUSH ASDIRECTED PRN Keep Vein Open Discontinued Medications Generic Name Dose Route Start Last Admin Trade Name Freq PRN Reason Stop Dose Admin Hydromorphone HCl 0.5 mg 11/16/20 13:24 11/16/20 13:44 Hydromorphone 0.5 Mg/0.5 Ml Syringe IVPUSH 11/16/20 13:25 0.5 mg ONETIME ONE Administration Ondansetron HCl 4 mg 11/16/20 13:18 11/16/20 13:43 Ondansetron 4 Mg/2 Ml Sdv IVPUSH 11/16/20 13:19 4 mg ONETIME ONE Administration Pantoprazole Sodium Confirm 11/16/20 13:49 11/16/20 13:53 Pantoprazole 40 Mg Tab.Cr Administered 11/16/20 13:50 Not Given Dose 80 mg .ROUTE .STK-MED ONE - Re-Assessments/Exams Free Text/Narrative Re-Assessment/Exam: Patient is a 40-year-old female presenting to the emergency department with complaints of epigastric discomfort as well as concerns of small flecks of [id number] material in her emesis as well as darker than normal stools. On exam, she does have significant epigastric tenderness. Exam is otherwise unremarkable. I have ordered blood work, H. pylori stool test, Hemoccult stool test, and abdomen flat and upright x-ray. 11/16/20 15:32 Patient's work-up is grossly unremarkable. Hematology is normal. BUN is normal, indicating that she is not digesting a significant amount of blood. Hemoccult stool was negative. Abdomen flat and upright x-ray shows increased stool within the colon but no other abnormalities. There is no air under the hemidiaphragm to suggest perforation. Patient's pain is improved after the medications given. H. pylori is a send out test, therefore results would not be available for few days. We will discharge her home with recommendation of taking Pepcid twice daily for 5 days followed by once daily for 5 days as well as prescription for Carafate. Recommend follow-up with your primary care provider in 1 week. Discussed return precautions. Discharge instructions as documented. Departure - Departure Time of Disposition: 15:33 Disposition: Home, Self-Care 01 Condition: Good Clinical Impression: Gastritis Qualifiers: Gastritis type: unspecified gastritis Chronicity: acute Gastritis bleeding: presence of bleeding unspecified Qualified Code(s): K29.00 - Acute gastritis without bleeding - Discharge Information *PRESCRIPTION DRUG MONITORING PROGRAM REVIEWED*: No *COPY OF PRESCRIPTION DRUG MONITORING REPORT IN PATIENT MARILU: No Prescriptions: Sucralfate [Carafate] 1 gm PO ACBED 10 Days #40 tab Instructions: Gastritis, Adult, [id number] Referrals: Kaila Felix NP [Primary Care Provider] - Forms: ED Department Discharge Additional Instructions: You were seen in the emergency department today for a 1 week history of epigastric pain with concerns of possible blood in your stool and vomit. Work- up included blood work, H. pylori test, fecal occult blood test, and an abdomen x-ray. Results of your work-up were found to be overall normal. There is no traces of blood in your stool. Your blood work is normal. Abdomen x-ray showed increased stool but was otherwise normal. While in the ER, you received IV fluids, nausea medications, and antacid. Would recommend that she start Pepcid 20 mg twice daily for 5 days followed by once daily for 5 days. Prescription has been sent for Carafate. Take this medication as prescribed. Avoid spicy, greasy, or acidic foods as this will likely aggravate your symptoms. Recommend follow-up with your primary care provider in 1 week for reevaluation. Return to ER for any new or worsening symptoms. Sepsis Event Note (ED) - Focused Exam Vital Signs: Vital Signs Temp Pulse Resp BP Pulse Ox 11/16/20 12:57 98.8 F 92 18 157/92 H 97 - My Orders Last 24 Hours: My Active Orders 11/16/20 13:17 Peripheral IV Insertion Adult [OM.PC] Stat 11/16/20 13:18 Sodium Chloride 0.9% [Saline Flush] 10 ml FLUSH ASDIRECTED PRN 11/16/20 13:19 Peripheral IV Care [RC] . DIRECTED 11/16/20 13:23 Fecal Occult Blood Collection [RC] ASDIRECTED 11/16/20 13:30 Sodium Chloride 0.9% [Normal Saline] 1,000 ml IV ASDIRECTED 11/16/20 13:40 H PYLORI STOOL ANTIGEN [MREF] Stat 11/17/20 09:00 Pantoprazole [ProTONIX] 80 mg PO DAILY - Assessment/Plan Last 24 Hours: My Active Orders 11/16/20 13:17 Peripheral IV Insertion Adult [OM.PC] Stat 11/16/20 13:18 Sodium Chloride 0.9% [Saline Flush] 10 ml FLUSH ASDIRECTED PRN 11/16/20 13:19 Peripheral IV Care [RC] . DIRECTED 11/16/20 13:23 Fecal Occult Blood Collection [RC] ASDIRECTED 11/16/20 13:30 Sodium Chloride 0.9% [Normal Saline] 1,000 ml IV ASDIRECTED 11/16/20 13:40 H PYLORI STOOL ANTIGEN [MREF] Stat 11/17/20 09:00 Pantoprazole [ProTONIX] 80 mg PO DAILY
[2020-11-17] MEDS ORDERED: Pantoprazole 40 MG Tab.CR PO SCH (09:00)
== END 2020-11-16 15:55 | disposition home or self-care (01) ==
LOC: JD.ED 12:43
DX: K29.00 Acute gastritis without bleeding (principal); E78.00 Pure hypercholesterolemia, unspecified; E11.9 Type 2 diabetes mellitus without complications; Z88.1 Allergy status to other antibiotic agents; Z79.899 Other long term (current) drug therapy
CPT/HCPCS: 36415; 74019; 80053; 82272; 83690; 85025; 86140; 87338; 96374; 96375; 99284; A9270; J1170; J2405; J7030; 99283

== ENCOUNTER 2023-04-05 00:11 | Emergency (ER) | payer BC ==
[2023-04-05 00:48] LABS: APPEARANCE,URINE SLT CLOUDY (Clear); BILIRUBIN,URINE NEGATIVE (Negative); COLOR,URINE LIGHT YELLOW (Yellow); GLUCOSE,URINE 2+ (Negative); KETONES,URINE TRACE (Negative); LEUKOCYTE ESTERASE,URINE TRACE (Negative); NITRITE,URINE NEGATIVE (Negative); OCCULT BLOOD,URINE 1+ (Negative); PH,URINE 7.5 (5.0-8.0); PROTEIN,URINE NEGATIVE (Negative); UROBILINOGEN,URINE 0.2 (0.2-1.0)
[2023-04-05 00:55] LABS: BACTERIA,URINE FEW /hpf (FEW); MUCUS,URINE NOT SEEN /hpf (FEW); SQUAMOUS EPITHELIAL CELLS,UR 0-5 /hpf (0-5); WBC CLUMPS,URINE OCCASIONAL /hpf (NOT SEEN)
[2023-04-05] MEDS: Metoclopramide 10 MG/2 ML SDV IVPUSH ONE (01:28)
[2023-04-05] MEDS: Sodium Chloride 0.9% 1,000 ML IV SCH (01:29)
[2023-04-05] MEDS: diphenhydrAMINE 50 MG/ML SDV IVPUSH ONE (01:29)
[2023-04-05] MEDS: HYDROmorphone 1 MG/ML Syringe IVPUSH ONE (01:29)
[2023-04-05] MEDS: Magnesium Citrate Solution 296 ML Bottle PO ONE (03:28)
[2023-04-05] MEDS: Dicyclomine 10 MG Cap PO ONE (03:28)
[2023-04-05] MEDS: Ondansetron 4 MG/2 ML SDV IVPUSH ONE (03:48)
[2023-04-05] MEDS: HYDROmorphone 0.5 MG/0.5 ML Syringe IVPUSH ONE (03:49)
[2023-04-05] MEDS: Cefdinir 300 MG Cap PO ONE (03:53)
[2023-04-05 04:03] VITALS: BP 148/85; PULSE 102
== END 2023-04-05 04:01 | disposition home or self-care (01) ==
LOC: JD.ED 00:11
DX: K59.01 Slow transit constipation (principal); N12 Tubulo-interstitial nephritis, not specified as acute or chronic; E78.00 Pure hypercholesterolemia, unspecified; E66.9 Obesity, unspecified; E11.9 Type 2 diabetes mellitus without complications; Z88.8 Allergy status to other drugs, medicaments and biological substances; Z79.899 Other long term (current) drug therapy; Z68.41 Body mass index [BMI] 40.0-44.9, adult
CPT/HCPCS: 74176; 81001; 87086; 96361; 96374; 96375; 96376; 99284; A9270; J1170; J1200; J2405; J2765; J7030